=== PATIENT | female | born 1985 | race Caucasian/White ===

== ENCOUNTER 2019-03-08 17:42 | Emergency (ER) | payer MEDICAID, OTHER ==
[~2019-03-08] VITALS: Ht 165.1 cm; Wt 78.5 kg
[~2019-03-08 17:42] MED LIST: ALPR0.5T PO; AMIT50TA PO; LEVO50TA5 PO; LIPA1CAP12 PO; ONDA4TAB12 PO; OXYC1TAB22 PO; RANI150T2 PO; SERT25TA PO
[2019-03-08 18:18] VITALS: BP 130/71
[2019-03-08 18:48] LABS: BASO # 0.1 x10^3/uL (0.0-0.2); BASO % 1 % (0-3); EOS # 0.1 x10^3/uL (0.0-0.7); EOS % 1 % (0-3); HEMATOCRIT 40.3 % (36.0-47.0); HEMOGLOBIN 13.7 g/dL (12.0-15.5); LYMPH # 2.5 x10^3/uL (1.0-4.8); LYMPH % 25 % (24-48); MEAN CORPUSCULAR HEMOGLOBIN 30 pg (25-35); MEAN CORPUSCULAR HGB CONC 34 g/dL (31-37); MEAN CORPUSCULAR VOLUME 88 fL (79-100); MONO # 0.5 x10^3/uL (0.0-1.1); MONO % 5 % (0-9); NEUT # 6.7 x10^3/uL (1.8-7.7); NEUT % 68 % (31-73); PLATELET COUNT 322 x10^3/uL (140-400); RED BLOOD COUNT 4.57 x10^6/uL (3.50-5.40); RED CELL DISTRIBUTION WIDTH 13.4 % (11.5-14.5); WHITE BLOOD COUNT 9.9 x10^3/uL (4.0-11.0)
[2019-03-08 18:50] LABS: BILIRUBIN,URINE NEGATIVE (NEG); CLARITY,URINE CLEAR; COLOR,URINE YELLOW; NITRITE,URINE NEGATIVE (NEG); PROTEIN,URINE NEGATIVE (NEG-TRACE); UROBILINOGEN,URINE 0.2 mg/dL (0.2 mg/dL)
[2019-03-08 18:56] LABS: CALCIUM 9.3 mg/dL (8.5-10.1); CREATININE 0.8 mg/dL (0.6-1.0); GFR 81.6
[2019-03-08 18:58] LABS: BACTERIA,URINE MODERATE /HPF (0-FEW); SQUAMOUS EPITHELIAL CELL,UR MANY /LPF
[2019-03-08 19:02] LABS: ALBUMIN 3.8 g/dL (3.4-5.0); TOTAL BILIRUBIN 0.2 mg/dL (0.2-1.0); TOTAL PROTEIN 7.7 g/dL (6.4-8.2)
[2019-03-08] MEDS ORDERED: IV NORMAL SALINE 1000ML BAG 1,000 ML IV ONE (19:15)
[2019-03-08] MEDS ORDERED: ONDANSETRON PF 4 MG/2 ML VIAL. IV ONE (19:15)
[2019-03-08] MEDS ORDERED: fentaNYL PF VIAL 100 MCG/2 ML VIAL IV ONE (19:15)
--- NOTE | 2019-03-08 22:14 | PHYS DOC ---
Past Medical History Past Medical History: Cancer, Pancreatitis, Other Additional Past Medical Histor: thyroid cancer (FELI ADDISON APRN) Past Surgical History: Cholecystectomy, , Tonsillectomy, Other Additional Past Surgical Histo: Thyroid,STEENT PLACED IN PANCREATIC DUCT (FELI ADDISON APRN) Alcohol Use: Rarely Drug Use: Marijuana (FELI ADDISON APRN) Attending Signature I have participated in the care of this patient and I have reviewed and agree with all pertinent clinical information above including history, exam, and recommendations. (RUPALI PRETTY MD) Adult General Chief Complaint Chief Complaint: ABDOMINAL PAIN HPI HPI Patient is a 34 year old female, accompanied by her friend, who presents to the emergency department with complaints of nausea and vomiting for the last 3 days with right upper quadrant abdominal pain. The patient states she has vomited at least 10 times in last 24 hours. She denies any diarrhea. Patient also denies any fever, dysuria, hematuria, increased urinary frequency, low back pain, chest pain, palpitations, shortness of breath, cough, wheezing, irregular vaginal discharge, or vaginal bleeding. Patient states she did have a fever up to 100.0 earlier today. Her last menstrual cycle was approximately 21 days ago. Patient reports a history of pancreatitis in the past. Her surgical history includes a cholecystectomy, thyroidectomy, and one . She denies any smoking, alcohol use, or illicit drug use. She currently rates her pain 8 out of 10 on the pain scale she denies any alleviating factors. All other ROS is neg unless otherwise noted in HPI. (FELI ADDISON APRN) Review of Systems Review of Systems See Above (FELI ADDISON APRN) Current Medications Current Medications Current Medications Medications (Trade) Dose Ordered Sig/Jimmy Start Time Stop Time Status Last Admin Dose Admin Fentanyl Citrate (Fentanyl 2ml Vial) 50 mcg 1X ONCE 03/08/19 19:15 03/08/19 19:16 DC 03/08/19 19:14 50 MCG Ondansetron HCl (Zofran) 4 mg 1X ONCE 03/08/19 19:15 03/08/19 19:16 DC 03/08/19 19:14 4 MG Sodium Chloride 1,000 ml @ 1,000 mls/hr 1X ONCE 03/08/19 19:15 03/08/19 20:14 DC 03/08/19 19:18 1,000 MLS/HR (RUPALI PRETTY MD) Allergies Allergies Allergies Coded Allergies Type Severity Reaction Last Updated Verified No Known Drug Allergies 05/26/13 No (RUPALI PRETTY MD) Physical Exam Physical Exam See Above Constitutional: Well developed, well nourished, no acute distress, non-toxic appearance. [] HENT: Normocephalic, atraumatic, bilateral external ears normal, oropharynx moist, no oral exudates, nose normal. [] Eyes: PERRLA, EOMI, conjunctiva normal, no discharge. [] Neck: Normal range of motion, no stridor. [] Cardiovascular:Heart rate regular rhythm, no murmur [] Lungs & Thorax: Bilateral breath sounds clear to auscultation [] Abdomen: Bowel sounds normal, soft, RUQ tenderness, no rebound tenderness, no guarding, no masses, no pulsatile masses. [] Skin: Warm, dry, no erythema, no rash. [] Back: No CVA tenderness. [] Extremities: No cyanosis, ROM intact Neurologic: Alert and oriented X 3, no focal deficits noted. [] Psychologic: Affect normal, judgement normal, mood normal. [] (FELI ADDISON APRN) Current Patient Data Vital Signs Vital Signs Date Time Temp Pulse Resp B/P (MAP) Pulse Ox O2 Delivery O2 Flow Rate FiO2 03/08/19 19:14 20 99 Room Air 03/08/19 18:18 98.6 83 130/71 (90) 98.6 (RUPALI PRETTY MD) Lab Values Laboratory Tests Test 03/08/19 17:50 03/08/19 18:14 03/08/19 18:40 Urine Collection Type Unknown Urine Color Yellow Urine Clarity Clear Urine pH 6.0 Urine Specific [place] >=1.030 Urine Protein Negative mg/dL (NEG-TRACE) Urine Glucose (UA) Negative mg/dL (NEG) Urine Ketones (Stick) Negative mg/dL (NEG) Urine Blood Negative (NEG) Urine Nitrite Negative (NEG) Urine Bilirubin Negative (NEG) Urine Urobilinogen Dipstick 0.2 mg/dL (0.2 mg/dL) Urine Leukocyte Esterase Negative (NEG) Urine RBC 1-2 /HPF (0-2) Urine WBC 1-4 /HPF (0-4) Urine Squamous Epithelial Cells Many /LPF Urine Bacteria Moderate /HPF (0-FEW) Urine Mucus Marked /LPF POC Urine HCG, Qualitative Hcg negative (Negative) White Blood Count 9.9 x10^3/uL (4.0-11.0) Red Blood Count 4.57 x10^6/uL (3.50-5.40) Hemoglobin 13.7 g/dL (12.0-15.5) Hematocrit 40.3 % (36.0-47.0) Mean Corpuscular Volume 88 fL (79-100) Mean Corpuscular Hemoglobin 30 pg (25-35) Mean Corpuscular Hemoglobin Concent 34 g/dL (31-37) Red Cell Distribution Width 13.4 % (11.5-14.5) Platelet Count 322 x10^3/uL (140-400) Neutrophils (%) (Auto) 68 % (31-73) Lymphocytes (%) (Auto) 25 % (24-48) Monocytes (%) (Auto) 5 % (0-9) Eosinophils (%) (Auto) 1 % (0-3) Basophils (%) (Auto) 1 % (0-3) Neutrophils # (Auto) 6.7 x10^3/uL (1.8-7.7) Lymphocytes # (Auto) 2.5 x10^3/uL (1.0-4.8) Monocytes # (Auto) 0.5 x10^3/uL (0.0-1.1) Eosinophils # (Auto) 0.1 x10^3/uL (0.0-0.7) Basophils # (Auto) 0.1 x10^3/uL (0.0-0.2) Sodium Level 137 mmol/L (136-145) Potassium Level 4.0 mmol/L (3.5-5.1) Chloride Level 99 mmol/L (98-107) Carbon Dioxide Level 30 mmol/L (21-32) Anion Gap 8 (6-14) Blood Urea Nitrogen 9 mg/dL (7-20) Creatinine 0.8 mg/dL (0.6-1.0) Estimated GFR (Cockcroft-Gault) 81.6 BUN/Creatinine Ratio 11 (6-20) Glucose Level 111 mg/dL (70-99) H Calcium Level 9.3 mg/dL (8.5-10.1) Magnesium Level 2.0 mg/dL (1.8-2.4) Total Bilirubin 0.2 mg/dL (0.2-1.0) Aspartate Amino Transferase (AST) 14 U/L (15-37) L Alanine Aminotransferase (ALT) 14 U/L (14-59) Alkaline Phosphatase 80 U/L (46-116) Total Protein 7.7 g/dL (6.4-8.2) Albumin 3.8 g/dL (3.4-5.0) Albumin/Globulin Ratio 1.0 (1.0-1.7) Lipase 55 U/L (73-393) L Laboratory Tests 03/08/19 18:40 Laboratory Tests 03/08/19 18:40 Microbiology 03/08/19 Urine Culture - Final, Complete 03/08/19 Urine Culture Result 1 (BRENDA) - Final, Complete (RUPALI PRETTY MD) EKG EKG [] (FELI ADDISON APRN) Radiology/Procedures Radiology/Procedures [] (FELI ADDISON APRN) Course & Med Decision Making Course & Med Decision Making Pertinent Labs and Imaging studies reviewed. (See chart for details) I had advised the patient of normal lab and urine results. The patient's IV infiltrated after the patient was given 50 g of fentanyl, 4 mg of Zofran, and a liter of normal saline had been initiated. When I went back to talk to the patient about her response to these medications the patient was no longer in her room. The patient had eloped the emergency department. I notified Erum, the battery recharger at that time. [] (FELI ADDISON APRN) Dragon Disclaimer Dragon Disclaimer This electronic medical record was generated, in whole or in part, using a voice recognition dictation system. (FELI ADDISON APRN) Departure Departure Impression: Primary Impression: Eloped from emergency department Disposition: 07 AGAINST MEDICAL ADVICE (eloped ) Condition: STABLE Referrals: FARRAH AHMADI MD (PCP) FELI ADDISON APRN Mar 08, 2019 22:14 RUPALI PRETTY MD Mar 12, 2019 02:10
== END 2019-03-08 20:15 | disposition left against medical advice (07) ==
LOC: ER 17:42
DX: R11.2 Nausea with vomiting, unspecified (principal); R10.11 Right upper quadrant pain; R19.7 Diarrhea, unspecified; Z90.49 Acquired absence of other specified parts of digestive tract
CPT/HCPCS: 36415; 80053; 81001; 81025; 83690; 83735; 85025; 87086; 96361; 96374; 96375; 99284; J2405; J3010; J7030

== ENCOUNTER 2019-12-04 00:26 | Emergency (ER) | payer MEDICAID ==
[~2019-12-04] VITALS: Ht 165.1 cm; Wt 72.7 kg
[2019-12-04 00:56] LABS: BILIRUBIN,URINE NEGATIVE (NEG); CLARITY,URINE CLEAR; COLOR,URINE YELLOW; NITRITE,URINE NEGATIVE (NEG); PROTEIN,URINE NEGATIVE (NEG-TRACE); UROBILINOGEN,URINE 0.2 mg/dL (0.2 mg/dL)
[2019-12-04 01:09] LABS: BACTERIA,URINE FEW /HPF (0-FEW); HYALINE CASTS, URINE MODERATE /HPF; RBC,URINE OCC /HPF (0-2); SQUAMOUS EPITHELIAL CELL,UR MOD /LPF
--- NOTE | 2019-12-04 01:25 | PHYS DOC ---
Past Medical History Past Medical History: Cancer, Pancreatitis, Other Additional Past Medical Histor: thyroid cancer Past Surgical History: Cholecystectomy, , Tonsillectomy, Other Additional Past Surgical Histo: Thyroid,STEENT PLACED IN PANCREATIC DUCT Smoking Status: Current Every Day Smoker Alcohol Use: Rarely Drug Use: Marijuana General Adult EDM: Chief Complaint: ABDOMINAL PAIN HPI: HPI: Patient is a 34 year old female who presents with elevated blood sugar, abdominal pain and anxiety. Patient reports that she was recently released [facility]. She had been in [facility] for the last couple weeks and they have been treating her with insulin and metformin for elevated blood sugar. Today she reports that she has had 2 weeks of abdominal pain that is been intermittent until 2 days ago when it became constant. She reports it radiates from her epigastrium towards her back straight through. She did reports it as a sharp pain that is constant. She reports is worse with food. She denies any vomiting but complains of nausea, no diarrhea, melena or hematochezia. Patient denies any change in urination. Patient also reported that today she felt a sense of doom, started breathing fast and ended up having carpopedal spasm and right now reports that she is shaky all over. Review of Systems: Review of Systems: Constitutional: Denies fever or chills. [] Eyes: Denies change in visual acuity. [] HENT: Denies nasal congestion or sore throat. [] Respiratory: Denies cough or shortness of breath. [] Cardiovascular: Denies chest pain or edema. [] GI: See HPI. [] : Denies dysuria. [] Musculoskeletal: Denies back pain or joint pain. [] Integument: Denies rash. [] Neurologic: Denies headache, focal weakness or sensory changes. [] Endocrine: Denies polyuria or polydipsia. [] Lymphatic: Denies swollen glands. [] Psychiatric: See HPI [] Heart Score: Risk Factors: Risk Factors: DM, Current or recent (<one month) smoker, HTN, HLP, family history of CAD, obesity. Risk Scores: Score 0 - 3: 2.5% MACE over next 6 weeks - Discharge Home Score 4 - 6: 20.3% MACE over next 6 weeks - Admit for Clinical Observation Score 7 - 10: 72.7% MACE over next 6 weeks - Early Invasive Strategies Current Medications: Current Medications Medications (Trade) Dose Ordered Sig/Jimmy Start Time Stop Time Status Last Admin Dose Admin Al Hydroxide/Mg Hydroxide (Mylanta Plus Xs) 30 ml 1X ONCE 12/04/19 01:30 12/04/19 01:31 Famotidine (Pepcid) 20 mg 1X ONCE 12/04/19 01:30 12/04/19 01:31 Ketorolac Tromethamine (Toradol 30mg Vial) 30 mg 1X ONCE 12/04/19 01:30 12/04/19 01:31 Lorazepam (Ativan Inj) 1 mg 1X ONCE 12/04/19 01:15 12/04/19 01:16 UNV Metoclopramide HCl (Reglan Vial) 10 mg 1X ONCE 12/04/19 01:30 12/04/19 01:31 Sodium Chloride 1,000 ml @ 1,000 mls/hr 1X ONCE 12/04/19 01:15 12/04/19 02:14 UNV Allergies: Allergies: Allergies Coded Allergies Type Severity Reaction Last Updated Verified No Known Drug Allergies 05/26/13 No Physical Exam: PE: Constitutional: Well developed, well nourished, no acute distress, non-toxic appearance. [] HENT: Normocephalic, atraumatic, bilateral external ears normal, oropharynx moist, no oral exudates, nose normal. [] Eyes: PERRLA, EOMI, conjunctiva normal, no discharge. [] Neck: Normal range of motion, no tenderness, supple, no stridor. [] Cardiovascular:Heart rate regular rhythm, no murmur [] Lungs & Thorax: Bilateral breath sounds clear to auscultation [] Abdomen: Bowel sounds normal, soft, no tenderness, no masses, no pulsatile masses. [] Skin: Warm, dry, no erythema, no rash. [] Back: No tenderness, no CVA tenderness. [] Extremities: No tenderness, no cyanosis, no clubbing, ROM intact, no edema. [] Neurologic: Alert and oriented X 3, normal motor function, normal sensory function, no focal deficits noted. [] Psychologic: Affect normal, judgement normal, mood normal. [] Current Patient Data: Labs: Laboratory Tests Test 12/04/19 00:30 12/04/19 00:42 12/04/19 01:12 Urine Collection Type Unknown Urine Color Yellow Urine Clarity Clear Urine pH 5.0 (<5.0-8.0) Urine Specific [place] >=1.030 (1.000-1.030) Urine Protein Negative mg/dL (NEG-TRACE) Urine Glucose (UA) >=1000 mg/dL (NEG) Urine Ketones (Stick) Trace mg/dL (NEG) Urine Blood Negative (NEG) Urine Nitrite Negative (NEG) Urine Bilirubin Negative (NEG) Urine Urobilinogen Dipstick 0.2 mg/dL (0.2 mg/dL) Urine Leukocyte Esterase Negative (NEG) Urine RBC Occ /HPF (0-2) Urine WBC 1-4 /HPF (0-4) Urine Squamous Epithelial Cells Mod /LPF Urine Bacteria Few /HPF (0-FEW) Urine Hyaline Casts Moderate /HPF Urine Mucus Mod /LPF POC Urine HCG, Qualitative Hcg negative (Negative) Glucose (Fingerstick) 234 mg/dL (70-99) H EKG: EKG: [] Radiology/Procedures: Radiology/Procedures: [] Course & Med Decision Making: Course & Med Decision Making Pertinent Labs and Imaging studies reviewed. (See chart for details) [id number]-the patient was seen and reevaluated. Patient reports that her pain is improving with medications rendered here in the emergency department. She also reports that her anxiety is markedly improved with the medications that we have given. Patient again described carpopedal spasms and tingling throughout her body prior to arrival here. I discussed with her hyperventilation syndrome and how to try to recognize it to prevent it in the future. I discussed with her diabetic treatment as well as what I would think should be the first steps which is diet management exercise and starting her on metformin. We will write a prescription for thousand milligrams twice daily and encouraged her to follow-up with her primary care physician which she says she would and get a glucometer from him. I discussed with the patient reasons to return, treatment plan and need for follow-up. [] Carlin Disclaimer: Calrin Disclaimer: This electronic medical record was generated, in whole or in part, using a voice recognition dictation system. Departure Departure Impression: Primary Impression: Hyperventilation syndrome Additional Impressions: Type 2 diabetes mellitus, uncontrolled Qualified Codes: E11.65 - Type 2 diabetes mellitus with hyperglycemia Acute gastritis without hemorrhage Qualified Codes: K29.00 - Acute gastritis without bleeding Referrals: TYRONE CRUZ (PCP) Patient Instructions: 1800 Calorie Diet for Diabetes Meal Planning, Diabetes Meal Planning Guide, Gastritis, Adult, Hyperventilation Scripts Omeprazole (OMEPRAZOLE) 40 Mg Capsule.dr 40 MG PO DAILY for 30 Days, #30 CAP Take 1/2-hour before the first meal the day Prov: JAMES MORATAYA MD 12/04/19 Metformin Hcl (METFORMIN HCL) 1,000 Mg Tablet 1000 MG PO BIDWMEALS, #60 TAB Prov: JAMES MORATAYA MD 12/04/19 Justicifation of Admission Dx: Justifications for Admission: Justification of Admission Dx: N/A JAMES MORATAYA MD Dec 04, 2019 01:25
[2019-12-04] MEDS ORDERED: KETOROLAC 30 MG/ML VIAL. IVP ONE (01:30)
[2019-12-04] MEDS ORDERED: METOCLOPRAMIDE HCL 10 MG/2 ML VIAL. IVP ONE (01:30)
[2019-12-04] MEDS ORDERED: FAMOTIDINE 20 MG TABLET. PO ONE (01:30)
[2019-12-04] MEDS ORDERED: MAG HYDROX/ALUMINUM HYD/SIMETH 30 ML ORAL.SUSP PO ONE (01:30)
[2019-12-04] MEDS ORDERED: IV NORMAL SALINE 1000ML BAG 1,000 ML IV ONE (01:30)
[2019-12-04 02:03] LABS: BASO # 0.1 x10^3/uL (0.0-0.2); BASO % 1 % (0-3); EOS % 0 % (0-3); HEMATOCRIT 36.2 % (36.0-47.0); HEMOGLOBIN 12.5 g/dL (12.0-15.5); LYMPH # 2.6 x10^3/uL (1.0-4.8); LYMPH % 17 % (24-48); MEAN CORPUSCULAR HEMOGLOBIN 30 pg (25-35); MEAN CORPUSCULAR HGB CONC 35 g/dL (31-37); MEAN CORPUSCULAR VOLUME 88 fL (79-100); MONO # 1.2 x10^3/uL (0.0-1.1); MONO % 8 % (0-9); NEUT # 11.4 x10^3/uL (1.8-7.7); NEUT % 74 % (31-73); PLATELET COUNT 342 x10^3/uL (140-400); RED CELL DISTRIBUTION WIDTH 12.9 % (11.5-14.5); WHITE BLOOD COUNT 15.5 x10^3/uL (4.0-11.0)
[2019-12-04 02:17] LABS: CALCIUM 9.4 mg/dL (8.5-10.1); CREATININE 0.8 mg/dL (0.6-1.0); GFR 81.6; POTASSIUM 4.2 mmol/L (3.5-5.1)
[2019-12-04 02:22] LABS: ALBUMIN 3.9 g/dL (3.4-5.0); ALBUMIN/GLOBULIN RATIO 1.1 (1.0-1.7); TOTAL BILIRUBIN 0.2 mg/dL (0.2-1.0); TOTAL PROTEIN 7.6 g/dL (6.4-8.2)
[2019-12-04 02:46] VITALS: BP 130/62
[2019-12-04] MEDS ORDERED: OMEP40CA45 PO (04:00)
[2019-12-04] MEDS ORDERED: METF10007 PO (04:00)
== END 2019-12-04 04:56 | disposition home or self-care (01) ==
LOC: ER 00:26
DX: F45.8 Other somatoform disorders (principal); E11.65 Type 2 diabetes mellitus with hyperglycemia; K29.00 Acute gastritis without bleeding; R10.13 Epigastric pain; F41.8 Other specified anxiety disorders; K86.1 Other chronic pancreatitis; F17.200 Nicotine dependence, unspecified, uncomplicated; F12.90 Cannabis use, unspecified, uncomplicated; Z85.9 Personal history of malignant neoplasm, unspecified; Z90.49 Acquired absence of other specified parts of digestive tract; Z98.890 Other specified postprocedural states
CPT/HCPCS: 36415; 80053; 81001; 81025; 82962; 83690; 85025; 96361; 96374; 96375; 99285; J1885; J2060; J2765; J7030